=== PATIENT | male | born 1980 | race Two or more races ===

== ENCOUNTER → 2016-11-12 | Outpatient (CLI) | payer BC ==
--- NOTE | 2016-11-12 13:57 | RAD ---
Chest, 2 views, 11/12/2016: History: Chest pain and nausea The heart size and pulmonary vascularity are normal. No pulmonary infiltrates are seen. There is no evidence of pleural fluid. IMPRESSION: No acute cardiopulmonary abnormality is detected.
== END | disposition home or self-care (01) ==
LOC: RAD 10:47
PROVIDERS: ATTEND Internal Medicine Gastroenterology
DX: R07.9 Chest pain, unspecified (principal); R11.0 Nausea
CPT/HCPCS: 71020

== ENCOUNTER → 2016-12-24 | Outpatient (CLI) | payer BC ==
[~2016-12-24] VITALS: Ht 167.6 cm; Wt 67.6 kg
[~2016-12-24] MED LIST: OMEP20CA9 PO; SINCALIDE 1.4 MCG in IV NORMAL SALINE 50ML 30 ML IV ONE
--- NOTE | 2016-12-25 09:29 | RAD ---
Radionuclide hepatobiliary scan, 12/24/2016: History: Epigastric pain Following IV injection of 5.5 mCi of technetium 99m Choletec there was prompt uptake of the radionuclide from the blood stream by the liver. Bile duct and gallbladder activity develops at 15 minutes. Initial imaging obtained out to one hour showed increasing gallbladder activity without extension into the small bowel. Following IV injection of 1.4 mcg of cholecystokinin there is extension of activity into the small bowel. The gallbladder ejection fraction was calculated at 17%. 30-50% is considered be the borderline low range. IMPRESSION: 1. No evidence of cystic duct or common bile duct obstruction. 2. Low gallbladder ejection fraction of 17%.
== END | disposition home or self-care (01) ==
LOC: NM 08:05
PROVIDERS: ATTEND Internal Medicine Gastroenterology
DX: R10.13 Epigastric pain (principal)
CPT/HCPCS: 78226; 96374; 96375; A9537; J2805

== ENCOUNTER → 2017-04-07 | Outpatient (CLI) | payer BC ==
[~2017-04-07] MED LIST changes: +ATOR10TA60 PO; +DICY10CA53 PO; +DOCU50CA9 PO; +OXYC-323 PO; -SINCALIDE 1.4 MCG in IV NORMAL SALINE 50ML 30 ML IV ONE
[2017-04-07 14:57] LABS: BASO % 1 % (0-3); EOS % 2 % (0-3); HEMATOCRIT 43.2 % (39.0-53.0); HEMOGLOBIN 14.6 g/dL (13.0-17.5); LYMPH # 2.6 x10^3/uL (1.0-4.8); LYMPH % 47 % (24-48); MEAN CORPUSCULAR HEMOGLOBIN 29 pg (25-35); MEAN CORPUSCULAR HGB CONC 34 g/dL (31-37); MEAN CORPUSCULAR VOLUME 87 fL (79-100); MONO % 7 % (0-9); NEUT % 43 % (31-73); PLATELET COUNT 243 x10^3/uL (140-400); RED BLOOD COUNT 4.96 x10^6/uL (4.30-5.70); RED CELL DISTRIBUTION WIDTH 13.4 % (11.5-14.5); WHITE BLOOD COUNT 5.5 x10^3/uL (4.0-11.0)
[2017-04-07 15:26] LABS: CALCIUM 8.7 mg/dL (8.5-10.1); CREATININE 0.8 mg/dL (0.7-1.3); GFR 108.2; POTASSIUM 3.4 mmol/L (3.5-5.1); TOTAL BILIRUBIN 0.5 mg/dL (0.2-1.0)
== END | disposition home or self-care (01) ==
LOC: SURGPAT 14:25
PROVIDERS: ATTEND Surgery
DX: Z01.812 Encounter for preprocedural laboratory examination (principal)
CPT/HCPCS: 36415; 80048; 82040; 82247; 85027

== ENCOUNTER → 2017-04-15 | Day surgery (SDC) | payer BC ==
[~2017-04-15] VITALS: Ht 162.6 cm; Wt 68.5 kg
[~2017-04-15] MED LIST changes: +BUPIVAC MPF-EPI 0.5%-1:200000 30 ML VIAL. ONE; +DEXAMETHASONE SOD PHOS 20 MG/5 ML VIAL. ONE; +GLYCOPYRROLATE 1 MG/5 ML VIAL. ONE; +HYDROmorphone 2 MG/ML VIAL IV PRN; +IOHEXOL 300 MG/ML 50 ML VIAL. ONE; +IV RINGERS,LACTATED 1000ML 1,000 ML IV SCH; +LIDOCAINE 1% 1 ML SYRINGE. ID PRN; +LIDOCAINE 2% PF Vial for OR 5 ML VIAL. ONE; +MORPHINE SULFATE 2 MG/ML DISP.SYRIN. IV PRN; +NEOSTIGMINE 10 MG/10 ML VIAL. ONE; +ONDANSETRON PF 4 MG/2 ML VIAL. IV PRN; +ONDANSETRON PF 4 MG/2 ML VIAL. ONE; +PROCHLORPERAZINE 10 MG/2 ML VIAL. IV PRN; +PROPOFOL 20 ML IV ONE; +ROCURONIUM 100 MG/10 ML VIAL. ONE; +SEVOFLURANE 61 TO 120 MINUTES. IH ONE; +SURGICEL HEMOSTAT 4X8 EACH. ONE; +fentaNYL PF VIAL 100 MCG/2 ML VIAL IV PRN; +fentaNYL PF VIAL 250 MCG/5 ML VIAL ONE; +oxyCODONE/APAP 5/325 1 TAB TABLET PO ONE
--- NOTE | 2017-04-15 09:18 | RAD ---
Intraoperative cholangiogram, 04/15/2017: History: Cholecystectomy 3 spot films from surgery are presented for review. Contrast has been injected into the cystic duct remnant. 24 seconds of fluoroscopy time was utilized. There is good flow of contrast into the duodenum at the ampulla. No filling defect is seen in the common duct to suggest a retained calculus. The visualized intrahepatic ducts are unremarkable. No contrast extravasation is seen. IMPRESSION: No significant abnormality is detected.
--- NOTE | 2017-04-15 09:54 | OP ---
DATE OF SURGERY: 04/15/2017 PREOPERATIVE DIAGNOSIS: Biliary dyskinesia. POSTOPERATIVE DIAGNOSIS: Biliary dyskinesia. PROCEDURE: Laparoscopic cholecystectomy with cholangiogram. SURGEON: Dany Arreaga M.D. ROLL GRINDER: Sandi Robert ANESTHESIA: General endotracheal. ESTIMATED BLOOD LOSS: 25 mL. IV FLUIDS: 1 liter. INDICATIONS: The patient is a 36-year-old with epigastric and right upper quadrant postprandial pain and a low ejection fraction by PIPIDA. He is brought for cholecystectomy. OPERATIVE FINDINGS: The liver was smooth and sharp, gallbladder was supple cholangiograms were normal. DESCRIPTION OF PROCEDURE: The patient brought to the operating suite, given a general endotracheal anesthetic and the abdomen prepped and draped in usual sterile fashion. A supraumbilical incision was infiltrated with local anesthetic, sharply incised and a 5 mm Visiport used to gain access into the abdominal cavity taking care to avoid injury to abdominal contents. Pneumoperitoneum was established. Camera inserted and inspection carried out with results as noted above. With the table in reverse Trendelenburg rolled to the left, the epigastric and midclavicular ports were placed under direct vision. The lateral port location was used for an "alligator" grasper. Gallbladder was retracted superolaterally and the cystic duct and cystic artery were carefully exposed. The cystic duct clipped on the gallbladder side. Cholangiograms were made. These were normal. In light of this, the catheter was removed. The cystic duct was clipped x 3 and divided taking care to avoid injury or compromise the common duct. An anterior and posterior branch of the cystic artery were isolated, ligated, and divided and the gallbladder freed from the bed with cautery dissection and placed in an EndoCatch bag. Table returned to level. The fossa was checked for hemostasis. This was obtained with cautery and a small piece of Surgicel. Gallbladder delivered through the epigastric incision. Epigastric incision closed with interrupted 0 Vicryl suture. Intra-abdominal pressure decreased to 6 cm of water. No bleeding from the epigastric closure or from the midclavicular port site after its removal or from the site for the "alligator" grasper after it was removed. Abdomen decompressed, camera slowly removed, no bleeding seen. Skin incisions closed with subcuticular 4-0 Monocryl. Steri-Strips and sterile dressings applied. The patient was awakened from his anesthetic and taken to the recovery room in satisfactory condition. DANY ARREAGA MD DR: CHRISTIN/julianne JOB#: [id number] / [id number]
--- NOTE | 2017-04-15 10:10 | DISCH ---
DISCHARGE INSTRUCTIONS Condition on Discharge Condition on Discharge: Stable Activity After Discharge Activity Instructions for Disc: Resume previous activity, Activity as tolerated , Avoid exertion Lifting Instructions after Dis: No heavy lifting Driving Instructions after Dis: Do not drive (3-4 days) Diet after Discharge Diet after Discharge: Regular Wound Incision Care Wound/Incision Care: Ice to area for comfort Other wound/incision instructi: january shower Thursday Follow-Up Follow up with: Cody next week LILA ARREAGA MD Apr 15, 2017 10:10
[2017-04-15] MEDS: fentaNYL PF VIAL 100 MCG/2 ML VIAL IV PRN ×3 (10:13→11:02)
--- NOTE | 2017-04-15 10:13 | PDOC ---
BRIEF OPERATIVE NOTE Date: Apr 15, 2017 Pre-Op Diagnosis biliary dyskinesia Post-Op Diagnosis same Procedure Performed l/s cholecystectomy with cholangiograms Surgeon Cody Roller Operator Renate SNOW Anesthesia Type: General Blood Loss 25cc IV Fluid 1000cc Specimens Obtained GB Findings supple GB, normals grams Complications none OPerative Note Wk # [id number] LILA ARREAGA MD Apr 15, 2017 10:13
[2017-04-15 12:48] VITALS: BP 132/79
--- NOTE | 2017-04-16 16:36 | PATHOLOGY ---
PATHOLOGY REPORT * * * * * * * * FINAL DIAGNOSIS: Gallbladder, cholecystectomy: - Cholesterolosis, focal. - Chronic cholecystitis, mild. COMMENT: There are no calculi identified within the gallbladder lumen or specimen container. Sections of the gallbladder show focal cholesterolosis and focal mild chronic inflammation. There is no evidence of malignancy. (JPM:pit; 04/16/2017) REPORT ELECTRONICALLY SIGNED BY: Jeff Moore M.D. DATE/TIME: 04/16/2017 16:35 * * * * * * * * GROSS PATHOLOGY: Received in formalin labeled "Vineet Biswas, gallbladder," is a 8.3 x 2.7 x 2.3 cm, intact gallbladder with dark purple silva to dull silva green serosal surfaces. Opening the gallbladder reveals curtis brown velvety mucosa and an average wall thickness of 0.3 cm. Calculi are not present and no masses are noted grossly. Nursing Home Director sections from the body and fundus are submitted along with the proximal margin in cassette A1. (JPM; 04/15/17) INITIAL CPT CODE(S): A; 70936 Professional services performed [place] [address] Technical services performed by [facility] [employer] [facility] at [address] [place] [address], [facility] [address] [address]. SPECIMEN(S) RECEIVED: A.Gallbladder and contents CLINICAL HISTORY: Biliary dyskinesia PATIENT: VINEET BISWAS /AGE: 805/06/1980 (Age: 36) PATIENT #: [id number] ALT CASE #: SPECIMEN COLLECTION DATE: 04/15/2017 SPECIMEN RECEIVED DATE: 04/15/2017 [facility] - [address] [place] [address] - PHONE: [phone] * * * END OF REPORT * * *
== END | disposition home or self-care (01) ==
LOC: SURG 06:19
PROVIDERS: ATTEND Surgery
DX: K82.8 Other specified diseases of gallbladder (principal); E78.00 Pure hypercholesterolemia, unspecified; K21.9 Gastro-esophageal reflux disease without esophagitis
CPT/HCPCS: 47563; 74300; J1100; J2001; J2405; J2704; J2710; J3010; J3490; J7030; J7120; Q9967

== ENCOUNTER 2021-11-19 06:48 | Day surgery (SDC) | payer OTHER ==
[~2021-11-19] VITALS: Ht 165.1 cm; Wt 70.0 kg
[~2021-11-19 06:48] MED LIST changes: -BUPIVAC MPF-EPI 0.5%-1:200000 30 ML VIAL. ONE; -DEXAMETHASONE SOD PHOS 20 MG/5 ML VIAL. ONE; -GLYCOPYRROLATE 1 MG/5 ML VIAL. ONE; -HYDROmorphone 2 MG/ML VIAL IV PRN; -IOHEXOL 300 MG/ML 50 ML VIAL. ONE; -IV RINGERS,LACTATED 1000ML 1,000 ML IV SCH; -LIDOCAINE 1% 1 ML SYRINGE. ID PRN; -LIDOCAINE 2% PF Vial for OR 5 ML VIAL. ONE; -MORPHINE SULFATE 2 MG/ML DISP.SYRIN. IV PRN; -NEOSTIGMINE 10 MG/10 ML VIAL. ONE; +OMEP20CA16 PO; -OMEP20CA9 PO; -ONDANSETRON PF 4 MG/2 ML VIAL. IV PRN; -ONDANSETRON PF 4 MG/2 ML VIAL. ONE; -OXYC-323 PO; +OXYC1TAB15 PO; -PROCHLORPERAZINE 10 MG/2 ML VIAL. IV PRN; -PROPOFOL 20 ML IV ONE; -ROCURONIUM 100 MG/10 ML VIAL. ONE; -SEVOFLURANE 61 TO 120 MINUTES. IH ONE; -SURGICEL HEMOSTAT 4X8 EACH. ONE; -fentaNYL PF VIAL 100 MCG/2 ML VIAL IV PRN; -fentaNYL PF VIAL 250 MCG/5 ML VIAL ONE; -oxyCODONE/APAP 5/325 1 TAB TABLET PO ONE
[2021-11-19] MEDS ORDERED: LACT1CAP37 PO (07:14)
[2021-11-19] MEDS ORDERED: MELO15TA23 PO (07:14)
[2021-11-19] MEDS ORDERED: PROPOFOL 10 MG/ML (20ML) VIAL. IV ONE (07:22)
[2021-11-19] MEDS ORDERED: ROCURONIUM 50 MG/5 ML VIAL. ONE (07:23)
[2021-11-19] MEDS ORDERED: KETOROLAC 30 MG/ML VIAL. ONE (07:23)
[2021-11-19] MEDS ORDERED: ROPIVacaine 0.5% PF 20 ML VIAL. ONE (07:23)
[2021-11-19] MEDS ORDERED: fentaNYL PF VIAL 100 MCG/2 ML VIAL ONE (07:23)
[2021-11-19] MEDS ORDERED: FAMOTIDINE 20 MG/2 ML VIAL ONE (07:23)
[2021-11-19] MEDS ORDERED: DEXAMETHASONE SOD PHOS 4 MG/ML VIAL ONE (07:23)
[2021-11-19] MEDS ORDERED: NEOSTIGMINE METHYLSULFATE 5 MG/5 ML SYRINGE. ONE (07:24)
[2021-11-19] MEDS ORDERED: GLYCOPYRROLATE 1 MG/5 ML VIAL. ONE (07:24)
[2021-11-19] MEDS ORDERED: MIDAZOLAM HCL/PF 2 MG/2 ML VIAL. ONE (07:24)
[2021-11-19] MEDS ORDERED: ONDANSETRON PF 4 MG/2 ML VIAL. ONE (07:24)
[2021-11-19 07:30] VITALS: BP 129/82
[2021-11-19] MEDS ORDERED: EPINEPHrine VIAL 30 MG/30 ML VIAL ONE (07:36)
[2021-11-19] MEDS ORDERED: IV RINGERS,LACTATED 1000ML 1,000 ML IV SCH ×2 (07:45→10:30)
[2021-11-19] MEDS ORDERED: OXYC1TAB15 PO (09:29)
--- NOTE | 2021-11-19 09:30 | DISCH ---
DISCHARGE INSTRUCTIONS Condition on Discharge Condition on Discharge: Stable Activity After Discharge Activity Instructions for Disc: Resume previous activity, Activity as mary ated, Avoid exertion Other activity instructions: arm to remain in sling Bathing Instructions: Shower-keep dressing dry Lifting Instructions after Dis: No heavy lifting Driving Instructions after Dis: Do not drive Weight Bearing Status after Di: Non weight bearing Diet after Discharge Diet after Discharge: Regular Wound Incision Care Wound/Incision Care: Ice to area for comfort Contacting the DRE[facility] after DC Call your doctor for: Concerns you may have Follow-Up Follow up with: Mika in 2 wks CASSIE JIANG II, MD Nov 19, 2021 09:30
[2021-11-19] MEDS ORDERED: fentaNYL PF VIAL 100 MCG/2 ML VIAL IVP PRN ×2 (10:30)
[2021-11-19] MEDS ORDERED: MORPHINE SULFATE 2 MG/ML INJ. IVP PRN (10:30)
[2021-11-19] MEDS ORDERED: PROCHLORPERAZINE 10 MG/2 ML VIAL. IVP PRN (10:30)
[2021-11-19] MEDS ORDERED: HYDROmorphone 2 MG/ML INJ. IVP PRN (10:30)
[2021-11-19] MEDS ORDERED: oxyCODONE/APAP 5/325 1 TAB TABLET PO ONE ×2 (10:30)
--- NOTE | 2021-11-19 10:39 | PDOC4 ---
Operative Note Operative Note Date of procedure: 11/19/2021 Surgeon: Cy Jiang Telecommunications Line Mechanic: Kendall Naqvi, certified legal secretary specialist, who was necessary to help manipulate the arm and assist with holding arthroscopic instrumentation necessary to accomplish the procedure. Preoperative diagnosis: Right shoulder rotator cuff tear Postoperative diagnosis: right shoulder rotator cuff tear, incomplete Procedure performed: Arthroscopic right shoulder rotator cuff repair Anesthesia: Gen. plus regional nerve block Findings: 1. Complete supraspinatus tear 2. Biceps intact and unremarkable 3. Labrum intact circumferentially and unremarkable 4. Glenohumeral cartilage unremarkable 5. No loose bodies 6. Remainder of rotator cuff was unremarkable Blood loss: 10mL Components inserted: [employer] Helacoil anchor x 2 Reason for procedure: Patient is a very pleasant gentleman who has had shoulder pain for years. Clinical and radiographic examination, including MRI were consistent with the preoperative diagnosis. Due to his symptoms and dysfunction, we had a discussion of the risks, benefits, alternatives the above surgery and he wished to proceed. Description of procedure: Patient was greeted in the preoperative holding area where the correct extremity was verified and marked. They were taken to the preoperative holding area where the anesthesiology team placed a regional nerve block. The patient was then taken back to the operative suite and antibiotics were started as they were brought back. Once in the operative room, the patient was transferred gently supine to the operating room table after successful induction of a general anesthetic. After this, he was sat up in a beachchair position maintaining his C-spine in neutral position, large pad under his legs, he was secured to the bed. We then prepped and draped his right upper extremity and shoulder girdle in our usual sterile fashion, we conducted our standard preoperative timeout. I palpated and marked surface anatomy for my planned portal sites. I then used a spinal needle to localize a posterior superior portal and incised skin in accordance with this. After this, I introduced the blunt arthroscopic trocar into the glenohumeral joint followed by the camera. I used a spinal needle to localize an anterosuperior portal and incised skin in accordance with this. I then introduced my arthroscopic probe and conducted my diagnostic arthroscopy with the above-noted findings. I then redirected my attention to the leading edge of his supraspinatus and used a spinal needle to pass a PDS suture through this. After this, I repositioned the camera into the subacromial space and performed a bursectomy with combination of shaver and electrocautery device. I then identified the rotator cuff tear and I debrided the pathologic tendon and prepared my footprint. I then placed my helacoil anchors and shuttled limbs through in a simple configuration. Given the smaller nature of the tear, I only used a total of 3 sutures to repair this. I tied these down with arthroscopic knot-tying techniques. The tear was stable to probing and to gentle rotation of the arm. I then removed all loose bony debris and the excess arthroscopic fluid. I took my final pictures prior to this. After this, all the excess fluid and instrumentation was removed. The portals were closed with simple interrupted 3-0 nylon. Sterile dressing was applied followed by an abduction pillow sling. Patient tolerated surgery well. No complications. At the conclusion, he was laid supine and transferred gently supine to the recovery room cart and taken to the PACU in a stable and extubated condition. Postoperative plan is discharge him home, nonweightbearing for 6 weeks. Well get him started on physical therapy. He will follow up with me in 2 weeks, sooner should a problem arise. CY JIANG II, MD Nov 19, 2021 10:39
[2021-11-19 11:20] VITALS: BP 119/80
[2021-11-19] MEDS ORDERED: SEVOFLURANE 61 TO 120 MINUTES. IH ONE (14:26)
== END 2021-11-19 11:50 | disposition home or self-care (01) ==
LOC: SURG 06:48
PROVIDERS: ATTEND Orthopaedic Surgery Sports Medicine
DX: M75.121 Complete rotator cuff tear or rupture of right shoulder, not specified as traumatic (principal); E78.00 Pure hypercholesterolemia, unspecified; K21.9 Gastro-esophageal reflux disease without esophagitis; Z90.49 Acquired absence of other specified parts of digestive tract; Z98.890 Other specified postprocedural states; Z79.899 Other long term (current) drug therapy
CPT/HCPCS: 29827; 36415; 64415; 82306; A4355; A4565; A4930; A6253; C1713; J0171; J0690; J1100; J1885; J2250; J2405; J2704; J2710; J2795; J3010; J3490; A4223; A4452